=== PATIENT | female | born 1995 ===

== ENCOUNTER → 2019-12-02 | Outpatient (CLI) | payer OTHER ==
--- NOTE | 2019-12-02 09:17 | RADIOLOGY REPORT (SQ) ---
EXAM DESCRIPTION: U/S OB TRANSVAGINAL W/O DOP COMPLETED DATE/TIME: 12/02/2019 9:03 am REASON FOR STUDY: VAGINAL BLEEDING DURING (O46.90) O46.90 ANTEPARTUM HEMORRHAGE, UNSPECIF IED, UNSPECIFIED TRIME COMPARISON: None. TECHNIQUE: Transvaginal static and realtime grayscale images acquired of the pelvis. Additional raymon cted spectral and color Doppler images recorded. All images stored on PACs. bHCG: Not available. CLINICAL DATES: 9 week 2 day. LIMITATIONS: None. FINDINGS: FETUS: Single Living intrauterine . ULTRASOUND EGA: 6 week 1 day. ULTRASOUND KELLIE: 07/26/2020. EFW: Not applicable less than 20 weeks. CRL: 0.41 cm. FHR: 79 beats per minute. SURVEY: No visualized anomalies. AMNIOTIC FLUID: Adequate amount. PLACENTA: Not yet developed due to early gestation. SUBCHORIONIC BLEED: Yes. SIZE OF BLEED: 2 x 5 x 6 mm. UTERUS: No masses. No anomalies. CERVICAL LENGTH: 3.1 cm. Closed. RIGHT ADNEXA: Normal ovary with normal vascular flow. No adnexal free fluid. Hypoechoic cyst with focal calcification measuring 0.9 x 1.3 cm. LEFT ADNEXA: Normal ovary with normal vascular flow. No adnexal free fluid. Hypoechoic cyst measuring 1.3 x 2.1 cm. FREE FLUID: Small amount of free fluid in the pelvic cul-de-sac. OTHER: No other significant finding. IMPRESSION: LIVING INTRAUTERINE . EGA 6 WEEK 1 DAY. SMALL SUBCHORIONIC BLEED. THE HEART RATE IS 79 BEATS PER MINUTE WHICH IS SLOW. Trimester of : First trimester - 0 to 13 weeks. TECHNICAL DOCUMENTATION: JOB ID: [id number] 2010 [employer]- All Rights Reserved rev-03/06 Reading location - IP/workstation name: [email or web address]
== END ==
LOC: RAD 07:50
PROVIDERS: ATTEND Nurse Practitioner Family
DX: O46.90 Antepartum hemorrhage, unspecified, unspecified trimester (principal); Z3A.00 Weeks of gestation of pregnancy not specified
CPT/HCPCS: 76817

== ENCOUNTER 2019-12-03 20:27 | Emergency (ER) | payer OTHER ==
--- NOTE | 2019-12-03 20:34 | ER Document Report ---
ED Medical Screen (RME) - General Chief Complaint: Vag Bleeding, +preg <12wks Stated Complaint: VAGINAL BLEEDING Time Seen by Provider: 12/03/19 20:34 Primary Care Provider: SEGUN BAKER NP [Primary Care Provider] - Follow up as needed Mode of Arrival: Ambulatory Information source: Patient Notes: 24-year-old female presents to ED for vaginal bleeding during . She had an ultrasound yesterday that showed a live intrauterine at 6 weeks 1 day with a estimated due date in July. She is alert oriented respirations regular nonlabored speaking in full sentences. Patient states she is breathing heavier today than yesterday. Yesterday she used 4 pads and today she has used 5. She did see the the ANIMAL DOCTOR. I have greeted and performed a rapid initial assessment of this patient. A comprehensive ED assessment and evaluation of the patient, analysis of test results and completion of medical decision making process will be conducted by an additional ED providers. TRAVEL OUTSIDE OF THE [place] IN LAST 30 DAYS: No Physical Exam - Vital signs Vitals: Temp Pulse Resp BP Pulse Ox 98.6 F 90 20 112/60 100 12/03/19 20:33 12/03/19 20:33 12/03/19 20:33 12/03/19 20:33 12/03/19 20:33 Course - Vital Signs Vital signs: Temp Pulse Resp BP Pulse Ox 98.6 F 90 20 112/60 100 12/03/19 20:33 12/03/19 20:33 12/03/19 20:33 12/03/19 20:33 12/03/19 20:33 Doctor's Discharge - Discharge Referrals: SEGUN BAKER NP [Primary Care Provider] - Follow up as needed
[2019-12-03 21:24] LABS: ABSOLUTE BASOPHILS # (AUTO) 0.1 10^3/uL (0.0-0.2); ABSOLUTE EOSINOPHILS # (AUTO) 0.5 10^3/uL (0.0-0.6); ABSOLUTE LYMPHOCYTES (AUTO) 3.3 10^3/uL (0.5-4.7); ABSOLUTE MONOCYTES (AUTO) 0.6 10^3/uL (0.1-1.4); ABSOLUTE NEUT (AUTO) 7.1 10^3/uL (1.7-8.2); BASOPHILS % (AUTO) 0.6 % (0-2); EOSINOPHILS % (AUTO) 4.7 % (0-6); HEMOGLOBIN 12.3 g/dL (12.0-15.5); LYMPHOCYTES % (AUTO) 28.3 % (13-45); MEAN CORPUSCULAR HEMOGLOBIN 31.6 pg (27.0-33.4); MEAN CORPUSCULAR HGB CONC 34.2 g/dL (32.0-36.0); MEAN CORPUSCULAR VOLUME 92 fl (80-97); MONOCYTES % (AUTO) 5.3 % (3-13); PLATELET COUNT 290 10^3/uL (150-450); RED CELL DISTRIBUTION WIDTH 12.5 % (11.5-14.0); SEGMENTED NEUTROPHILS % (AUTO) 61.1 % (42-78); TOTAL CELLS COUNTED % (AUTO) 100 %; WHITE BLOOD COUNT 11.6 10^3/uL (4.0-10.5)
[2019-12-03 21:34] LABS: APPEARANCE,URINE SLIGHTLY-CLOUDY; BILIRUBIN,URINE NEGATIVE (NEGATIVE); COLOR,URINE YELLOW; GLUCOSE, URINE NEGATIVE (NEGATIVE); KETONES,URINE NEGATIVE (NEGATIVE); PROTEIN,URINE NEGATIVE (NEGATIVE); URINE SPECIFIC GRAVITY 1.017; UROBILINOGEN,URINE NEGATIVE mg/dL (<2.0)
[2019-12-03 21:39] LABS: ALBUMIN 4.4 g/dL (3.5-5.0); ALKALINE PHOSPHATASE 77 U/L (38-126); ANION GAP 11 (5-19); ASPARTATE AMINO TRANSFERASE 19 U/L (14-36); BILIRUBIN,TOTAL 0.2 mg/dL (0.2-1.3); BLOOD UREA NITROGEN 14 mg/dL (7-20); CALCIUM 9.7 mg/dL (8.4-10.2); CARBON DIOXIDE 25 mmol/L (22-30); CHLORIDE 105 mmol/L (98-107); GLUCOSE 106 mg/dL (75-110); POTASSIUM 4.8 mmol/L (3.6-5.0); TOTAL PROTEIN 7.6 g/dL (6.3-8.2)
[2019-12-04 01:12] VITALS: BP 114/57
--- NOTE | 2019-12-04 01:12 | ER Document Report ---
Entered by IZABEL ALCALA SCRIBE 12/04/19 0027 Acting as scribe for:ZORAIDA GROVES IV, MD ED GI/ - General Chief Complaint: Vag Bleeding, +preg <12wks Stated Complaint: VAGINAL BLEEDING Time Seen by Provider: 12/03/19 20:34 Primary Care Provider: ALEXEY GRAJEDA MD [ACTIVE STAFF] - 12/06/19 SEGUN BAKER NP [NURSE PRACTITIONER] - Follow up as needed Mode of Arrival: Ambulatory Information source: Relative - Notes: This 24 year old female G3, P1, currently 6 weeks and 3 days presents to the ED today with complaints of vaginal bleeding and abdominal/pelvic region pain for the past x1 week. at bedside states that the patient initially started having light vaginal bleeding that progressed to heavy bleeding for the past x2 days, heaviest x1 day ago. states that the patient used x4-5 pads these past x2 days. states that the patient had an ultrasound on 11/01/19 that verified the length of and that there was a heart beat detected. states that the OBGYN told the patient to monitor the bleed. notes that he was advised to follow up with OBGYN in a x1 week. TRAVEL OUTSIDE OF THE [place] IN LAST 30 DAYS: No - Related Data Allergies/Adverse Reactions: No Known Allergies Allergy (Verified 12/03/19 20:41) Past Medical History - General Information source: Relative - - Social History Smoking Status: Never Smoker Cigarette use (# per day): No Chew tobacco use (# tins/day): No Smoking Education Provided: No Frequency of alcohol use: None Drug Abuse: None Family History: Reviewed & Not Pertinent Patient has suicidal ideation: No Patient has homicidal ideation: No Review of Systems - Review of Systems Constitutional: No symptoms reported EENT: No symptoms reported Cardiovascular: No symptoms reported Respiratory: No symptoms reported Gastrointestinal: See HPI, Abdominal pain - Pelvic pain Genitourinary: No symptoms reported Female Genitourinary: See HPI, - 6 weeks and 3 days , Vaginal bleeding Musculoskeletal: No symptoms reported Skin: No symptoms reported Hematologic/Lymphatic: No symptoms reported Neurological/Psychological: No symptoms reported -: Yes All other systems reviewed and negative Physical Exam - Vital signs Vitals: Temp Pulse Resp BP Pulse Ox 98.6 F 90 20 112/60 100 12/03/19 20:33 12/03/19 20:33 12/03/19 20:33 12/03/19 20:33 12/03/19 20:33 Interpretation: Normal - General General appearance: Alert - HEENT Head: Normocephalic, Atraumatic Eyes: Normal Pupils: PERRL - Respiratory Respiratory status: No respiratory distress Chest status: Nontender Breath sounds: Normal Chest palpation: Normal - Cardiovascular Rhythm: Regular Heart sounds: Normal auscultation Murmur: No - Abdominal Inspection: Normal Distension: No distension Bowel sounds: Normal Tenderness: Nontender Organomegaly: No organomegaly - Back Back: Normal, Nontender - Extremities General upper extremity: Normal inspection General lower extremity: Normal inspection - Neurological Neuro grossly intact: Yes - Psychological Associated symptoms: Normal affect, Normal mood - Skin Skin Temperature: Warm Skin Moisture: Dry Skin Color: Normal Course - Re-evaluation Re-evalutation: 12/04/19 00:52 Results of ED MSE discussed with patient and patient's significant other. Results of OB ultrasound done 12/02/19 also discussed with patient and patient's significant other. This MD discussed that there is a subchorionic hemorrhage present and that the heart rate is less than 100. This MD explained to the patient and her spouse that there is a possibility that this could be a threatened miscarriage. All questions were answered prior to discharge. Emergency signs and symptoms, reasons to return to the emergency department discussed with patient and patient's spouse. 12/04/19 00:53 - Vital Signs Vital signs: Temp Pulse Resp BP Pulse Ox 97.9 F 80 15 114/57 L 100 12/04/19 01:09 12/04/19 01:09 12/04/19 01:09 12/04/19 01:09 12/04/19 01:09 - Laboratory Result Diagrams: 12/03/19 20:52 12/03/19 20:52 Laboratory results interpreted by me: 12/03/19 12/03/19 12/03/19 20:52 20:52 20:57 WBC 11.6 H Beta HCG, Quant 51462.00 H Urine Blood LARGE H Discharge - Discharge Clinical Impression: First trimester bleeding Condition: Good Disposition: HOME, SELF-CARE Additional Instructions: Return to the Emergency Department without delay if any worse. HOME CARE INSTRUCTIONS & INFORMATION: Thank you for choosing us for your medical needs. We hope you're satisfied with the care you received. After you leave, you must properly care for your problem and, at the same time, observe its progress. Any condition can change. Some illnesses can change rapidly over hours or days. If your condition worsens, return to the Emergency Department or see your physician promptly. ABOUT YOUR X-RAYS AND EKG'S: If you had an EKG or X-rays taken, they have been read by the Emergency Physician. The X-rays and EKG's will also be read by a Radiologist or Jewelry Store Manager within 24 hours. If discrepancies are noted, you will be notified by telephone. Please be certain the ED has a correct telephone number & address where you can be reached. Also, realize that some fractures or abnormalities do not show up on initial X-rays. If your symptoms continue, see your physician. ABOUT YOUR LABORATORY TEST: If you had laboratory tests, the results have been reviewed by the Emergency Physician. Some test results (for example cultures) may not be available for several days. You will be contacted if any test result shows you need additional treatment. Please be certain the ED has a correct telephone number and address where you can be reached. ABOUT YOUR MEDICATIONS: You will receive instructions on how to take your medicine on the prescription label you receive. Additional information may be provided by the Pharmacy. If you have questions afterwards, call the ED for clarification or further instructions. Some prescribed medications may cause drowsiness. Do not perform tasks such as driving a car or operating machinery without consulting your Pharmacist. If you feel you need a refill of pain medication, your condition will need re-evaluation. Please do not call for a refill of any medication. ABOUT YOUR SIGNATURE: Signature of this document acknowledges to followin. Understanding that you received emergency treatment and that you may be released before al medical problems are known or treated. Please be certain the ED has a correct phone number & address where you can be reached. 2. Acknowledgement that you will arrange for follow-up care as recommended. 3. Authorization for the Emergency Physician to provide information to your follow-up Physician in order to maximize your care. AT ANY TIME, IF YOUR SYMPTOMS CHANGE SIGNIFICANTLY OR WORSEN OR YOU DEVELOP NEW SYMPTOMS, RETURN TO THE EMERGENCY DEPARTMENT IMMEDIATELY FOR RE-EVALUATION. OUR GOAL IS TO PROVIDE EXCELLENT MEDICAL CARE! WE HOPE THAT WE HAVE MET YOUR EXPECTATIONS DURING YOUR EMERGENCY DEPARTMENT VISIT AND THAT YOU FEEL YOU HAVE RECEIVED EXCELLENT CARE! Referrals: SEGUN BAKER NP [NURSE PRACTITIONER] - Follow up as needed ALEXEY GRAJEDA MD [ACTIVE STAFF] - 12/06/19 I personally performed the services described in the documentation, reviewed and edited the documentation which was dictated to the scribe in my presence, and it accurately records my words and actions.
== END 2019-12-04 01:07 | disposition home or self-care (01) ==
LOC: ER 20:27
DX: O20.9 Hemorrhage in early pregnancy, unspecified (principal); R10.2 Pelvic and perineal pain; Z3A.01 Less than 8 weeks gestation of pregnancy
CPT/HCPCS: 36415; 80053; 81001; 84702; 85025; 86900; 86901; 99284